=== PATIENT | female | born 1955 | race Caucasian/White ===

== ENCOUNTER → 2016-04-17 | Outpatient (CLI) | payer OTHER ==
[~2016-04-17] MED LIST: AMBIEN5 MG PO; ASPIR 8181 MG PO; ASPIR-LOX325 MG PO; ASPIRIN325 M2 PO; ASPIRIN81 M1 PO; ATIVAN0.5 MG PO; BIAXIN500 MG PO; CELEXA10 MG PO; CELEXA20 MG PO; CELEXA40 MG PO; CIPRO250 MG PO; CLARITIN10 MG PO; COMBIVENT1 ARO IH; COREG3.125 MG PO; FENOFIBRATE54 MG PO; HYDROCODONE BIT1 T11 PO; JANUVIA50 MG PO; KEFLEX500 MG PO; LIPITOR40 MG PO; LIPITOR80 MG PO; LISINOPRIL HCTZ1 TAB PO; LISINOPRIL10 MG PO; MEDROL DOSEPAK4 MG PO; MIRAPEX0.125 M1 PO; MOTRIN800 MG PO; Mysoline50 MG PO; NEURONTIN300 MG PO; NICOTINE T21 MG/24 H T; NORCO 5-325 TA1 EACH PO; NORVASC5 MG PO; OXYCODONE HCL15 MG PO; OXYCODONE15 MG PO; PERCOCET 325 MG1 TA7 PO; PLAVIX75 M1 PO; PRENATAL DHA+C1 EACH PO; PROTONIX40 MG PO; RESTORIL15 MG PO; RESTORIL30 MG PO; SIMVASTATIN10 MG PO; SYNTHROID0.05 MG PO; Synthroid,Lev100 MCG PO; TIZANIDINE HCL4 MG PO; TRICOR48 MG PO; VICO10300 PO; ZANAFLEX4 M1 PO; ZOLPIDEM TART5 MG PO
[2016-04-17 13:03] LABS: BILIRUBIN NEGATIVE (NEGATIVE); BLOOD NEGATIVE (NEGATIVE); CLARITY SL CLOUDY (CLEAR); COLOR YELLOW (YELLOW); GLUCOSE NEGATIVE (NEGATIVE); KETONE NEGATIVE (NEGATIVE); LEUKO ESTERASE NEGATIVE (NEGATIVE); NITRITE NEGATIVE (NEGATIVE); PH 5.5 (5.0-9.0); PROTEIN NEGATIVE (NEGATIVE); SPECIFIC GRAVITY 1.025 (1.005-1.030); UROBILINOGEN 0.2 E.U./dl (0.2-1.0)
[2016-04-17 13:06] LABS: BASO # 0.1 10*3/uL (0.0-0.1); BASO % 1.1 % (0.0-1.0); EOS # 0.1 10*3/uL (0.0-0.4); HEMATOCRIT 31.5 % (37.0-47.0); LYMPH % 15.7 % (27.0-41.0); MEAN CELL VOLUME 91.3 fl (81.0-99.0); MEAN CORPUSCULAR HGB CONC 31.7 g/dl (33.0-37.0); MEAN PLATELET VOLUME 9.8 fl (9.6-12.3); MONO # 0.5 10*3/uL (0.1-1.0); MONO % 7.9 % (3.0-9.0); NEUT # 4.7 10*3/uL (2.3-7.9); NEUT % 72.8 % (47.0-73.0); PLATELET COUNT AUTOMATED 370 10*3/uL (130-400); RED BLOOD COUNT 3.45 10*6/uL (4.10-5.10); RED CELL DISTRI WIDTH 15.7 % (0-14.5); WHITE BLOOD COUNT 6.4 10*3/uL (4.8-10.8)
[2016-04-17 13:21] LABS: URINE TP/CRE RATIO 0.2 (<0.21)
[2016-04-17 13:33] LABS: MAGNESIUM 2.1 mg/dL (1.5-2.1); PHOSPHOROUS 3.2 mg/dL (2.5-4.9); POTASSIUM 4.6 mmol/L (3.5-5.1)
[2016-04-17 13:42] LABS: BACTERIA 1+; RBC 0-2 rbc/hpf (0-2)
[2016-04-17 13:47] LABS: HEMOGLOBIN A1c 5.3 % (4.8-5.6)
[2016-04-17 14:30] LABS: FERRITIN 78.3 ng/mL (10.0-291.0); VITAMIN D, 25-HYDROXY 26.5 ng/mL (30-100)
== END | disposition home or self-care (01) ==
LOC: LAB 12:36 → US 13:00
PROVIDERS: Internal Medicine Nephrology
DX: N18.4 Chronic kidney disease, stage 4 (severe) (principal); N17.9 Acute kidney failure, unspecified

== ENCOUNTER 2018-04-22 11:21 | Emergency (ER) | payer OTHER ==
[~2018-04-22] VITALS: Ht 165.1 cm; Wt 107.5 kg
--- NOTE | ~2018-04-22 | EKG ---
[place], [place] ELECTROCARDIOGRAM REPORT NAME: PERLA BETANCOURT UNIT #: [id number] ROOM: DOCTOR: EPIPHANY DRAFT REPORT BIRTHDATE: [birth year] [facility] Test Date: 2018-04-22 Test Time: 11:18:45 Pat Name: PERLA BETANCOURT Department: Room: Gender: F Pharmacometrician: Perla Sellers : 1955 Requested By: GABY LEVY Order Number: [id number] Reading MD: Reno Jacobo MD Measurements Intervals [place] Rate: 90 P: 99 GA: 153 QRS: 75 QRSD: 85 T: 83 QT: 353 QTc: 432 Interpretive Statements Sinus rhythm Atrial premature complex Nonspecific T abnormalities, lateral leads No previous ECG available for comparison Electronically Signed On 04-22-2018 19:37:01 PST by Reno Jacobo MD CM:EKGRPT:ELECTROCARDIOGRAM REPORT [id number] GABY BURGOS DRAFT REPORT GABY LEVY M.D.
[2018-04-22 12:19] LABS: BASO # 0.1 10*3/uL (0.0-0.1); BASO % 0.7 % (0.0-1.0); EOS # 0.1 10*3/uL (0.0-0.4); EOS % 1.7 % (1.0-4.0); HEMATOCRIT 38.4 % (37.0-47.0); LYMPH # 1.1 10*3/uL (1.3-4.4); LYMPH % 14.5 % (27.0-41.0); MEAN CELL VOLUME 86.1 fl (81.0-99.0); MEAN CORPUSCULAR HGB 29.1 pg (27.0-31.0); MEAN CORPUSCULAR HGB CONC 33.9 g/dl (33.0-37.0); MEAN PLATELET VOLUME 9.4 fl (9.6-12.3); MONO # 0.5 10*3/uL (0.1-1.0); MONO % 6.6 % (3.0-9.0); NEUT # 5.7 10*3/uL (2.3-7.9); NEUT % 75.8 % (47.0-73.0); PLATELET COUNT AUTOMATED 249 10*3/uL (130-400); RED BLOOD COUNT 4.46 10*6/uL (4.10-5.10); RED CELL DISTRI WIDTH 13.3 % (0-14.5); WHITE BLOOD COUNT 7.5 10*3/uL (4.8-10.8)
[2018-04-22 12:30] LABS: ACT PARTIAL THROMBO TIME 24.1 SECONDS (20.8-31.5); INTERNATIONAL NORM RATIO 1.1 (2.0-3.5)
[2018-04-22 12:38] LABS: ALBUMIN 3.6 gm/dl (3.1-4.5); CREATININE 1.51 mg/dL (0.55-1.02); POTASSIUM 3.8 mmol/L (3.5-5.1); TOTAL PROTEIN 8.1 gm/dL (6.4-8.2)
== END 2018-04-22 13:13 | disposition short-term general hospital (02) ==
LOC: ED 11:21
PROVIDERS: Emergency Medicine
DX: G45.9 Transient cerebral ischemic attack, unspecified (principal); E11.9 Type 2 diabetes mellitus without complications; I10 Essential (primary) hypertension; E78.5 Hyperlipidemia, unspecified; K21.9 Gastro-esophageal reflux disease without esophagitis; E03.9 Hypothyroidism, unspecified; Z86.73 Personal history of transient ischemic attack (TIA), and cerebral infarction without residual deficits; Z79.899 Other long term (current) drug therapy; Z79.82 Long term (current) use of aspirin; Z79.84 Long term (current) use of oral hypoglycemic drugs; Z90.710 Acquired absence of both cervix and uterus; Z90.49 Acquired absence of other specified parts of digestive tract

== ENCOUNTER 2018-05-04 16:19 | Emergency (ER) | payer OTHER ==
--- NOTE | ~2018-05-04 | EKG ---
[place], [place] ELECTROCARDIOGRAM REPORT NAME: CECILIA BETANCOURT UNIT #: [id number] ROOM: DOCTOR: EPIPHANY DRAFT REPORT BIRTHDATE: [address] [facility] Test Date: 2018-05-04 Test Time: 22:55:42 Pat Name: CECILIA BETANCOURT Department: Room: Gender: F Business System Manager: Tre Sheehan : 1955 Requested By: AYO SUERO Order Number: [id number] Reading MD: Real Silva Measurements Intervals [place] Rate: 90 P: NE: QRS: 13 QRSD: 86 T: 70 QT: 355 QTc: 435 Interpretive Statements Sinus rhythm Borderline repolarization abnormality Compared to ECG 04/22/2018 11:18:45 Sinus rhythm no longer present Atrial premature complex(es) no longer present T-wave abnormality no longer present Electronically Signed On 05-06-2018 12:45:49 PST by Real Silva CM:EKGRPT:ELECTROCARDIOGRAM REPORT [id number] AYO TORREZ DRAFT REPORT AYO SUERO DO
--- NOTE | ~2018-05-04 | EKG ---
[place], [place] ELECTROCARDIOGRAM REPORT NAME: CECILIA BETANCOURT UNIT #: [id number] ROOM: DOCTOR: EPIPHANY DRAFT REPORT BIRTHDATE: [birth year] [facility] Test Date: 2018-05-05 Test Time: 01:14:58 Pat Name: CECILIA BETANCOURT Department: Room: Gender: F Medical Laboratory Scientist: Tre Sheehan : 1955 Requested By: AYO SUERO Order Number: [id number] Reading MD: Real Silva Measurements Intervals [place] Rate: 74 P: 99 CA: 149 QRS: 3 QRSD: 86 T: 149 QT: 367 QTc: 408 Interpretive Statements Sinus rhythm Atrial premature complexes in couplets Abnormal R-wave progression, late transition Nonspecific T abnormalities, lateral leads Compared to ECG 04/22/2018 11:18:45 No significant changes Electronically Signed On 05-06-2018 12:46:46 PST by Real Silva CM:EKGRPT:ELECTROCARDIOGRAM REPORT [id number] AYO TORREZ DRAFT REPORT AYO SUERO DO
[2018-05-04 23:11] LABS: BASO # 0.1 10*3/uL (0.0-0.1); BASO % 0.9 % (0.0-1.0); EOS # 0.1 10*3/uL (0.0-0.4); EOS % 1.3 % (1.0-4.0); HEMOGLOBIN 12.5 g/dl (12.0-16.0); LYMPH # 1.8 10*3/uL (1.3-4.4); MEAN CELL VOLUME 88.4 fl (81.0-99.0); MEAN CORPUSCULAR HGB 29.1 pg (27.0-31.0); MEAN CORPUSCULAR HGB CONC 32.9 g/dl (33.0-37.0); MEAN PLATELET VOLUME 9.9 fl (9.6-12.3); MONO # 0.8 10*3/uL (0.1-1.0); MONO % 8.6 % (3.0-9.0); NEUT # 6.3 10*3/uL (2.3-7.9); NEUT % 68.9 % (47.0-73.0); PLATELET COUNT AUTOMATED 300 10*3/uL (130-400); RED CELL DISTRI WIDTH 13.7 % (0-14.5); WHITE BLOOD COUNT 9.2 10*3/uL (4.8-10.8)
[2018-05-04 23:30] LABS: CREATININE 2.38 mg/dL (0.55-1.02); POTASSIUM 3.9 mmol/L (3.5-5.1); TOTAL PROTEIN 8.6 gm/dL (6.4-8.2)
[2018-05-04 23:37] LABS: ACT PARTIAL THROMBO TIME 24.1 SECONDS (20.8-31.5); INTERNATIONAL NORM RATIO 1.1 (2.0-3.5)
[2018-05-04 23:41] LABS: TROPONIN I 0.166 ng/ml (<0.045)
[2018-05-06 10:05] LABS: HEPATITIS B SURFACE AG Negative (Negative); HEPATITIS C AB <0.1 (0.0-0.9)
== END 2018-05-05 06:26 | disposition short-term general hospital (02) ==
LOC: ED 16:19
PROVIDERS: Student in an Organized Health Care Education/Training Program
DX: I63.9 Cerebral infarction, unspecified (principal); I95.9 Hypotension, unspecified; E11.9 Type 2 diabetes mellitus without complications; E78.5 Hyperlipidemia, unspecified; I10 Essential (primary) hypertension; K21.9 Gastro-esophageal reflux disease without esophagitis; E03.9 Hypothyroidism, unspecified; Z86.73 Personal history of transient ischemic attack (TIA), and cerebral infarction without residual deficits; Z79.899 Other long term (current) drug therapy; Z79.82 Long term (current) use of aspirin; Z79.84 Long term (current) use of oral hypoglycemic drugs

== ENCOUNTER → 2019-02-13 | Outpatient (CLI) | payer OTHER ==
[2019-02-13 11:36] LABS: BILIRUBIN NEGATIVE (NEGATIVE); BLOOD NEGATIVE (NEGATIVE); CLARITY SL CLOUDY (CLEAR); COLOR YELLOW (YELLOW); GLUCOSE NEGATIVE (NEGATIVE); KETONE NEGATIVE (NEGATIVE); LEUKO ESTERASE NEGATIVE (NEGATIVE); NITRITE NEGATIVE (NEGATIVE); UROBILINOGEN 0.2 E.U./dl (0.2-1.0)
[2019-02-13 11:40] LABS: BASO # 0.1 10*3/uL (0.0-0.1); BASO % 0.7 % (0.0-1.0); EOS # 0.1 10*3/uL (0.0-0.4); EOS % 1.8 % (1.0-4.0); HEMATOCRIT 35.9 % (37.0-47.0); HEMOGLOBIN 11.5 g/dl (12.0-16.0); LYMPH % 12.9 % (27.0-41.0); MEAN CELL VOLUME 89.8 fl (81.0-99.0); MEAN CORPUSCULAR HGB 28.8 pg (27.0-31.0); MEAN PLATELET VOLUME 9.8 fl (9.6-12.3); MONO # 0.6 10*3/uL (0.1-1.0); MONO % 8.4 % (3.0-9.0); NEUT # 5.6 10*3/uL (2.3-7.9); NEUT % 75.5 % (47.0-73.0); PLATELET COUNT AUTOMATED 291 10*3/uL (130-400); RED CELL DISTRI WIDTH 13.4 % (0-14.5); RETICULOCYTE % 2.02 % (0.50-2.50); WHITE BLOOD COUNT 7.4 10*3/uL (4.8-10.8)
[2019-02-13 12:05] LABS: BACTERIA TRACE; RBC 0-2 rbc/hpf (0-2); WBC 0-2 wbc/hpf (0-5)
[2019-02-13 12:13] LABS: ALBUMIN 3.9 gm/dl (3.1-4.5); CREATININE 1.51 mg/dL (0.55-1.02); POTASSIUM 4.2 mmol/L (3.5-5.1); THYROXINE (T4) TOTAL 7.9 ug/dl (4.8-13.9)
[2019-02-13 12:19] LABS: THYROID STIM HORMONE (HS) 1.53 uIU/ml (0.358-4.75)
[2019-02-13 12:38] LABS: FERRITIN 318.8 ng/mL (10.0-291.0); VITAMIN D, 25-HYDROXY 31.8 ng/mL (30-100)
== END | disposition home or self-care (01) ==
LOC: LAB 11:06
PROVIDERS: Family Medicine
DX: E55.9 Vitamin D deficiency, unspecified (principal); R53.83 Other fatigue; R79.89 Other specified abnormal findings of blood chemistry; Z79.899 Other long term (current) drug therapy

== ENCOUNTER 2019-04-15 13:06 | Emergency (ER) | payer OTHER ==
[~2019-04-15] VITALS: Wt 112.0 kg
[2019-04-15 13:45] LABS: BASO % 0.7 % (0.0-1.0); EOS # 0.1 10*3/uL (0.0-0.4); EOS % 1.8 % (1.0-4.0); HEMATOCRIT 33.3 % (37.0-47.0); HEMOGLOBIN 10.8 g/dl (12.0-16.0); LYMPH # 0.9 10*3/uL (1.3-4.4); MEAN CELL VOLUME 92.8 fl (81.0-99.0); MEAN CORPUSCULAR HGB 30.1 pg (27.0-31.0); MEAN CORPUSCULAR HGB CONC 32.4 g/dl (33.0-37.0); MEAN PLATELET VOLUME 9.7 fl (9.6-12.3); MONO # 0.4 10*3/uL (0.1-1.0); NEUT # 3.9 10*3/uL (2.3-7.9); NEUT % 71.4 % (47.0-73.0); PLATELET COUNT AUTOMATED 280 10*3/uL (130-400); RED BLOOD COUNT 3.59 10*6/uL (4.10-5.10); RED CELL DISTRI WIDTH 13.7 % (0-14.5); WHITE BLOOD COUNT 5.5 10*3/uL (4.8-10.8)
[2019-04-15 14:00] LABS: ACT PARTIAL THROMBO TIME 45.1 SECONDS (20.0-32.1); ALBUMIN 3.7 gm/dl (3.1-4.5); CREATININE 1.55 mg/dL (0.55-1.02); INTERNATIONAL NORM RATIO 1.1 (2.0-3.5); TOTAL PROTEIN 7.8 gm/dL (6.4-8.2); TROPONIN I 0.028 ng/ml (<0.045)
== END 2019-04-15 14:40 | disposition short-term general hospital (02) ==
LOC: ED 13:06
PROVIDERS: Emergency Medicine
DX: R47.81 Slurred speech (principal); R29.810 Facial weakness; R06.02 Shortness of breath; R68.2 Dry mouth, unspecified; E11.9 Type 2 diabetes mellitus without complications; I10 Essential (primary) hypertension; K21.9 Gastro-esophageal reflux disease without esophagitis; E03.9 Hypothyroidism, unspecified; E78.00 Pure hypercholesterolemia, unspecified; M79.7 Fibromyalgia; Z90.710 Acquired absence of both cervix and uterus; Z90.49 Acquired absence of other specified parts of digestive tract; Z86.73 Personal history of transient ischemic attack (TIA), and cerebral infarction without residual deficits; Z79.899 Other long term (current) drug therapy; Z79.82 Long term (current) use of aspirin; Z87.891 Personal history of nicotine dependence

== ENCOUNTER 2019-07-07 13:27 | Inpatient (IN) | payer OTHER ==
[2019-07-07] VITALS (19 sets, daily range): BP systolic 93–144; BP diastolic 53–97
[~2019-07-07] VITALS: Ht 165.1 cm; Wt 89.6 kg
--- NOTE | 2019-07-07 13:35 | NUR ---
aware of ekg at this time.
[2019-07-07 13:52] LABS: BASO # 0.1 10*3/uL (0.0-0.1); BASO % 0.8 % (0.0-1.0); EOS # 0.1 10*3/uL (0.0-0.4); EOS % 0.9 % (1.0-4.0); HEMATOCRIT 37.6 % (37.0-47.0); LYMPH # 0.9 10*3/uL (1.3-4.4); LYMPH % 11.4 % (27.0-41.0); MEAN CELL VOLUME 87.2 fl (81.0-99.0); MEAN CORPUSCULAR HGB 28.3 pg (27.0-31.0); MEAN CORPUSCULAR HGB CONC 32.4 g/dl (33.0-37.0); MONO # 0.5 10*3/uL (0.1-1.0); MONO % 6.8 % (3.0-9.0); NEUT % 79.3 % (47.0-73.0); PLATELET COUNT AUTOMATED 182 10*3/uL (130-400); RED BLOOD COUNT 4.31 10*6/uL (4.10-5.10); RED CELL DISTRI WIDTH 14.5 % (0-14.5); WHITE BLOOD COUNT 7.6 10*3/uL (4.8-10.8)
[2019-07-07 14:02] LABS: ACT PARTIAL THROMBO TIME 49.9 SECONDS (20.0-32.1); INTERNATIONAL NORM RATIO 1.2 (2.0-3.5)
--- NOTE | 2019-07-07 14:10 | NUR ---
Pt turned and voided yellow urine.No wounds noted.
[2019-07-07 14:11] LABS: ALBUMIN 3.8 gm/dl (3.1-4.5); CREATININE 1.57 mg/dL (0.55-1.02); POTASSIUM 3.9 mmol/L (3.5-5.1); TOTAL PROTEIN 7.6 gm/dL (6.4-8.2)
[2019-07-07 14:14] LABS: TROPONIN I 0.186 ng/ml (<0.045)
--- NOTE | 2019-07-07 14:29 | NUR ---
and in to see pt at this time.
--- NOTE | 2019-07-07 14:40 | NUR ---
Nitro paste applied to left upper chest with notecard.
--- NOTE | 2019-07-07 14:48 | NUR ---
Pt states her chest pain is feeling better after nitro.
--- NOTE | 2019-07-07 15:01 | NUR ---
Conchis liu updated on pt status per pt request.
[2019-07-07] MEDS ORDERED: AMIODARONE HYD200 MG PO (15:37)
[2019-07-07] MEDS ORDERED: AMLODIPINE BESYL5 MG PO (15:37)
[2019-07-07] MEDS ORDERED: ELIQUIS5 M1 PO (15:38)
[2019-07-07] MEDS ORDERED: LEVOTHYROXINE125 MCG PO (15:39)
--- NOTE | 2019-07-07 15:40 | NUR ---
Pt voided large amount of urine at this time.
[2019-07-07] MEDS ORDERED: PRAMIPEXOLE DI0.5 MG PO (15:41)
[2019-07-07] MEDS ORDERED: OMEPRAZOLE MAGN20 MG PO (15:44)
--- NOTE | 2019-07-07 15:50 | NUR ---
A 63, admitted to , under the services of CHUY Wellington DO with a diagnosis of NSTEMI. Chief complaint is CHEST PAIN AND LOWER LEFT JAWA PAIN x2 HOURS. Patient arrived via ambulance from ER. Monitor applied. Initial assessment completed. Vital signs taken and recorded. CHUY WELLINGTON DO notified of admission to the unit. Orders received. See assessment for past medical history, medications and allergies. Patient and/or family oriented to unit. [facility] visitation policy reviewed. Clothing/patient valuable form completed. HEYDI LAYNE
--- NOTE | 2019-07-07 16:01 | NUR ---
ATTEMPTED TO CALL CONSULT TO CARDIO. ANSWERING SERVICE STATED NO ONE WAS PER DIEM NURSE. WILL ATTEMPT TO CALL CONSULT AGAIN.
--- NOTE | 2019-07-07 16:24 | NUR ---
HEPARIN DRIP STARTED. WILL MONITOR.
--- NOTE | 2019-07-07 16:43 | NUR ---
CONSULT CALLED TO ANSWERING SERVICE.
[2019-07-07] MEDS ORDERED: ZOFRAN4 MG PO (17:12)
[2019-07-07] MEDS ORDERED: TYLENOL WITH C1 EACH PO (17:13)
[2019-07-07] MEDS ORDERED: ZANAFLEX4 MG PO (17:14)
[2019-07-07] MEDS ORDERED: ATIVAN0.5 MG PO (17:15)
[2019-07-07] MEDS ORDERED: MIRALAX17 GM PO (17:16)
[2019-07-07] MEDS ORDERED: LOPID600 M1 PO (17:33)
[2019-07-07] MEDS ORDERED: SENNA LAX8.6 M1 PO (17:33)
[2019-07-07] MEDS ORDERED: IRON325 M1 PO (17:34)
[2019-07-07] MEDS ORDERED: TOPAMAX25 M3 PO (17:37)
--- NOTE | 2019-07-07 18:44 | NUR ---
CALLED TO ROOM FOR C/O INCREASED SOB AND CHEST PAIN. MORPHINE GIVEN PER ORDERS. PT SEEMED VERY ANXIOUS AT THIS TIME, RESTLESS, AND C/O CUMMINGS. ATIVAN AND TOPAMAX GIVEN FOR COMPLAINTS. ASSISTED PT TO REPOSTION FOR COMFORT. WILL MONITOR.
--- NOTE | 2019-07-07 20:02 | NUR ---
NOTIFIED DR. FELDER OF CRITICAL TROPONIN, 4.940.
--- NOTE | 2019-07-07 20:16 | NUR ---
NOTIFIED DR. LIM OF NEW CRITICAL TROPONIN. STATES TO START NITRO DRIP AND TRANSFER PATIENT TO ICU. DR. FELDER MADE AWARE.
--- NOTE | 2019-07-07 20:30 | NUR ---
NOTIFIED FAMILY OF TRANSFER
--- NOTE | 2019-07-07 21:15 | NUR ---
PATIENT MOVED TO [facility]. REPORT GIVEN TO ADALBERTO HENNESSY.
--- NOTE | 2019-07-07 21:30 | NUR ---
NITRO DRIP STARTED ON PATIENT. PT BP 123/79 AND HR 88 AT THIS TIME. WILL CONTINUE TO MONITOR AND REASSESS.
--- NOTE | 2019-07-07 21:50 | NUR ---
NITRO DRIP INCREASED TO 10 MCG.
--- NOTE | 2019-07-07 21:50 | NUR ---
SPOKE WITH KINNEAR REGARDING CARE. PATIENT WILL RECEIVE 12.5 OF METOPROLOL AT THIS TIME TO ENSURE ADEQUATE PRESSURES WHILE ON NITRO DRIP.
--- NOTE | 2019-07-07 23:10 | NUR ---
DR. UMAÑA AND DR. BORDEN NOTIFIED OF CRITICAL TROPONIN RESULT. NO NEW ORDERS AT THIS TIME.
--- NOTE | 2019-07-07 23:16 | NUR ---
MOPHINE AND ZODFRAN GIVEN AT THIS TIME. PATIENT STILL HAVING A SMALL AMOUNT OF CHEST PAIN AT THIS TIME AND IS REQUESTING MEDICATION. WILL CONTINUE TO MONITOR AND REASSESS.
--- NOTE | 2019-07-07 23:35 | NUR ---
BP DROPPED TO 90'S/50'S. NITRO DRIP DECREASED TO 5MCG.
[2019-07-08] VITALS (45 sets, daily range): BP systolic 88–131; BP diastolic 54–82
--- NOTE | 2019-07-08 00:35 | NUR ---
HEPARIN DRIP STOPPED AT THIS TIME PER POLICY DUE TO LAB RESULT OF NO CLOT DETECTED. LAB TEST WAS DONE TWICE AND SPOKE DANYEL LANE FROM THE LAB.
--- NOTE | 2019-07-08 02:00 | NUR ---
DR. UMAÑA NOTIFIED OF CRITICAL TROPONIN AND CRITICALL PTT RESULT. PATIENT CONDITION REVIEWED. ORDERS RECEIVED TO HOLD HEPARIN DRIP FOR ANOTHER HOUR AND RESTARTED IT AT DECREASED RATE PER POLICY. PTT WILL BE REDRAWN AT 0900.
[2019-07-08 05:51] LABS: ALBUMIN 3.3 gm/dl (3.1-4.5); CREATININE 1.53 mg/dL (0.55-1.02); FREE T4 1.41 ng/dl (0.76-1.46); PHOSPHOROUS 4.4 mg/dL (2.5-4.9); TOTAL PROTEIN 6.8 gm/dL (6.4-8.2)
[2019-07-08 05:55] LABS: THYROID STIM HORMONE (HS) 0.743 uIU/ml (0.358-4.75)
[2019-07-08 06:16] LABS: INTERNATIONAL NORM RATIO 1.1 (2.0-3.5)
[2019-07-08 06:24] LABS: BASO # 0.1 10*3/uL (0.0-0.1); BASO % 1.2 % (0.0-1.0); EOS # 0.1 10*3/uL (0.0-0.4); EOS % 2.2 % (1.0-4.0); LYMPH # 1.7 10*3/uL (1.3-4.4); LYMPH % 29.2 % (27.0-41.0); MEAN CELL VOLUME 89.5 fl (81.0-99.0); MEAN CORPUSCULAR HGB 28.4 pg (27.0-31.0); MEAN CORPUSCULAR HGB CONC 31.7 g/dl (33.0-37.0); MEAN PLATELET VOLUME 10.8 fl (9.6-12.3); MONO # 0.5 10*3/uL (0.1-1.0); MONO % 8.2 % (3.0-9.0); NEUT # 3.4 10*3/uL (2.3-7.9); NEUT % 58.5 % (47.0-73.0); PLATELET COUNT AUTOMATED 171 10*3/uL (130-400); RED BLOOD COUNT 3.91 10*6/uL (4.10-5.10); RED CELL DISTRI WIDTH 14.7 % (0-14.5); WHITE BLOOD COUNT 5.8 10*3/uL (4.8-10.8)
--- NOTE | 2019-07-08 08:00 | NUR ---
PATIENT AO X 3. HEP AND NITRO DRIPS RUNNING WITHOUT DIFFICULTY.
[2019-07-08 08:11] LABS: VITAMIN D, 25-HYDROXY 31.9 ng/mL (30-100)
--- NOTE | 2019-07-08 08:50 | NUR ---
AGNES PATIENT BLOOD AND SENT TO LAB FOR PTT.
--- NOTE | 2019-07-08 09:35 | NUR ---
MEDICATED WITH TYLENOL AND CODIENE PER ORDER AND REQUEST FOR C/O HEADACHE.
--- NOTE | 2019-07-08 09:36 | NUR ---
LAB CALLED AND STATED TUBE NEEDS TO BE FILLED NOT HALF. SOMEONE FROM LAB IS COMING TO DRAW.
--- NOTE | 2019-07-08 10:30 | NUR ---
PATIENT SLEEPING TYLENOL/CODEINE HELPED.
--- NOTE | 2019-07-08 10:54 | NUR ---
DR. MONTES HAS ROUNDED. NITRO GTT OFF PASTE TO TAKE ITS PLACE. PATIENT IS TO GO TO [facility]' WEDNESDAY FOR HEART CATH WILL NOTIFY FAMILY.
--- NOTE | 2019-07-08 11:30 | NUR ---
DAUGHTER CALLED IN AND UPDATED ON PATIENT CONDITION AND TRANSFER ON WEDNESDAY.
--- NOTE | 2019-07-08 16:02 | NUR ---
MEDICATED WITH PRN ATIVAN PER ORDER AND REQUEST.
--- NOTE | 2019-07-08 18:10 | NUR ---
DARON EARLIER HELPED.
--- NOTE | 2019-07-08 20:00 | NUR ---
RN IN TO SEE PATIENT, PATIENT C/O NOSE BLEED. UPON INSPECTION PATIENT'S NOSTRILS APPEAR DRY AND PATIENT ADMITS TO SCRATCHING INSIDE OF NOSE. RN EXPLAINED TO PATIENT THAT INSIDE OF NOSE MAY BE DRY FOR OXYGEN USE AND WILL EASILY BLEED DUE TO HEPARIN DRIP. RN INSTRUCTED PATIENT TO USE WET WIPE TO WIPE NOSE INSTEAD OF DRY TISSUE. PATIENT VERBALIZES UNDERSTANDING. PATIENT ALSO C/O HEADCHE, IS REQUESTING TYLENOL WITH MANDEEPE. STATES THAT IT WORKED EARLIER AND WOULD LIKE AGAIN.
--- NOTE | 2019-07-08 20:15 | NUR ---
PATIENT MEDICATED WITH TYLENOL AND CODIENE FOR COMPLAINTS OF HEADACHE. RN WILL MONITOR FOR RELIEF
--- NOTE | 2019-07-08 20:46 | NUR ---
PATIENT MEDICATED WITH RESTORIL PER REQUEST. SILVIA STATES SHE HAS DIFFICULTY SLEEPING WITHOUT MEDICATION. RN WILL MONITOR FOR EFFECTIVENESS
--- NOTE | 2019-07-08 22:52 | NUR ---
PATIENT RESTING QUIETLY WITH EYES CLOSED, APPEARS TO BE SLEEPING. EARLIER PRN MEDICATIONS SEEM TO HAVE BEEN EFFECTIVE
[2019-07-09] VITALS: BP 110/62; BP 99/62
--- NOTE | 2019-07-09 03:44 | NUR ---
Patient resting quietly with no c/o discomfort. Respirations easy and regular. Vital signs stable. No overt distress. HEPARIN CONTINUES TO INFUSE PER PROTOCOL. ABY CASTELLON
[2019-07-09 04:00] VITALS: BP 98/60
[2019-07-09 05:56] LABS: BUN 26 mg/dl (7-24); CHLORIDE 106 mmol/L (98-107); CREATININE 1.55 mg/dL (0.55-1.02); POTASSIUM 3.9 mmol/L (3.5-5.1); SODIUM 139 mmol/L (136-145)
[2019-07-09 06:01] LABS: PHOSPHOROUS 3.7 mg/dL (2.5-4.9)
[2019-07-09 06:15] LABS: BASO # 0.1 10*3/uL (0.0-0.1); BASO % 0.9 % (0.0-1.0); EOS # 0.1 10*3/uL (0.0-0.4); EOS % 1.9 % (1.0-4.0); HEMATOCRIT 33.7 % (37.0-47.0); LYMPH # 1.6 10*3/uL (1.3-4.4); LYMPH % 28.1 % (27.0-41.0); MEAN CELL VOLUME 88.9 fl (81.0-99.0); MEAN CORPUSCULAR HGB 28.2 pg (27.0-31.0); MEAN CORPUSCULAR HGB CONC 31.8 g/dl (33.0-37.0); MEAN PLATELET VOLUME 10.5 fl (9.6-12.3); MONO # 0.4 10*3/uL (0.1-1.0); MONO % 7.2 % (3.0-9.0); NEUT # 3.6 10*3/uL (2.3-7.9); NEUT % 61.2 % (47.0-73.0); PLATELET COUNT AUTOMATED 190 10*3/uL (130-400); RED BLOOD COUNT 3.79 10*6/uL (4.10-5.10); RED CELL DISTRI WIDTH 14.6 % (0-14.5); WHITE BLOOD COUNT 5.8 10*3/uL (4.8-10.8)
[2019-07-09 06:17] LABS: PHENOBARBITAL (LUMINAL) < 2.1 ug/ml (15-40)
[2019-07-09 08:00] VITALS: BP 102/60
--- NOTE | 2019-07-09 09:00 | NUR ---
DR MONTES ROUNDED
--- NOTE | 2019-07-09 10:20 | NUR ---
DR NIKI WISE
[2019-07-09 12:00] VITALS: BP 88/53
[2019-07-09 16:00] VITALS: BP 94/69
--- NOTE | 2019-07-09 16:27 | NUR ---
PATIENT REMAINS UP IN THE RECLINER...PT WANTS TO STAY UP.. SHE IS WORKING HER LEGS, MOVING HER ARMS..
[2019-07-09] MEDS ORDERED: NEURONTIN300 MG PO (16:46)
[2019-07-09] MEDS ORDERED: LOPRESSOR25 MG PO (16:46)
[2019-07-09 20:00] VITALS: BP 113/46
--- NOTE | 2019-07-09 21:10 | NUR ---
codeine and tylenol given for pt c/o headache. will continue to monitor, call light within reach.
[2019-07-10] VITALS: BP 110/62
--- NOTE | 2019-07-10 03:24 | NUR ---
PATIENT BATHED WITH HIBICLENS AND BED LINENS CHANGED AT THIS TIME.
[2019-07-10 04:00] VITALS: BP 114/58
[2019-07-10 06:05] LABS: BASO % 0.6 % (0.0-1.0); EOS # 0.1 10*3/uL (0.0-0.4); EOS % 1.5 % (1.0-4.0); HEMATOCRIT 34.7 % (37.0-47.0); LYMPH # 1.4 10*3/uL (1.3-4.4); LYMPH % 22.3 % (27.0-41.0); MEAN CELL VOLUME 87.8 fl (81.0-99.0); MEAN CORPUSCULAR HGB 28.4 pg (27.0-31.0); MEAN CORPUSCULAR HGB CONC 32.3 g/dl (33.0-37.0); MEAN PLATELET VOLUME 10.4 fl (9.6-12.3); MONO # 0.4 10*3/uL (0.1-1.0); MONO % 5.6 % (3.0-9.0); NEUT # 4.5 10*3/uL (2.3-7.9); NEUT % 69.1 % (47.0-73.0); PLATELET COUNT AUTOMATED 196 10*3/uL (130-400); RED BLOOD COUNT 3.95 10*6/uL (4.10-5.10); RED CELL DISTRI WIDTH 14.4 % (0-14.5); WHITE BLOOD COUNT 6.5 10*3/uL (4.8-10.8)
[2019-07-10 06:17] LABS: CREATININE 1.47 mg/dL (0.55-1.02); POTASSIUM 4.1 mmol/L (3.5-5.1)
--- NOTE | 2019-07-10 07:32 | NUR ---
Patient being transferred for heart cath. No answer physician phone. Unknown if to perform echo or cancel. ECHO on hold.
--- NOTE | 2019-07-10 07:59 | NUR ---
I SPOKE WITH NURSE DANICA IN [facility]LL [facility] OPERATOR AT [facility]. REPORT GIVEN AND HE STATED TO MAKE SURE PT HAS TAKEN HER BP AND CARDIAC MEDS AND ASA THIS AM. OK TO LEAVE HEPARIN GTT RUNNING EN ROUTE TO THEM. [facility] NOTIFIED OF NEED FOR TRANSPORT TO [facility] TOLL BRIDGE OPERATOR KRISTEN.
[2019-07-10 08:00] VITALS: BP 113/61
--- NOTE | 2019-07-10 08:18 | NUR ---
[facility] HERE TO TRANSPORT PT TO [facility] [employer].
--- NOTE | 2019-07-10 08:50 | NUR ---
PHYSICAL THERAPY PT order received when patient was on 4E. Patient transferred to 5th floor for ICU care. Per nursing notes, patient is being transferred to [facility] this date. Please discharge PT orders at this time. Thank you. Kat Patel,PT,DPT
--- NOTE | 2019-07-10 08:51 | NUR ---
Occupational therapy orders received and chart reviewed. Per the nursing notes, patient is being transferred to [facility] lab this date. No further OT indicated at this time. Thank you. Connie Griffiths, OTR/L
== END 2019-07-10 08:18 | disposition short-term general hospital (02) | DRG 281 ==
LOC: ED 13:27 → 5E 14:54 → EDHOLD 14:54 → 4E 15:04 → 5E 20:37
PROVIDERS: Family Medicine; Internal Medicine; ADMIT Internal Medicine
DX: I21.4 Non-ST elevation (NSTEMI) myocardial infarction (principal); D68.9 Coagulation defect, unspecified; J90 Pleural effusion, not elsewhere classified; N18.3 Chronic kidney disease, stage 3 (moderate); I48.91 Unspecified atrial fibrillation; R74.0 Nonspecific elevation of levels of transaminase and lactic acid dehydrogenase [LDH]; R00.0 Tachycardia, unspecified; E03.9 Hypothyroidism, unspecified; E11.65 Type 2 diabetes mellitus with hyperglycemia; F41.9 Anxiety disorder, unspecified; G89.4 Chronic pain syndrome; F32.9 Major depressive disorder, single episode, unspecified; E78.5 Hyperlipidemia, unspecified; I12.9 Hypertensive chronic kidney disease with stage 1 through stage 4 chronic kidney disease, or unspecified chronic kidney disease; E11.22 Type 2 diabetes mellitus with diabetic chronic kidney disease; K21.9 Gastro-esophageal reflux disease without esophagitis; Z86.73 Personal history of transient ischemic attack (TIA), and cerebral infarction without residual deficits; Z90.49 Acquired absence of other specified parts of digestive tract; Z90.710 Acquired absence of both cervix and uterus; Z90.79 Acquired absence of other genital organ(s); Z90.722 Acquired absence of ovaries, bilateral; Z79.01 Long term (current) use of anticoagulants; I25.2 Old myocardial infarction; Z87.891 Personal history of nicotine dependence; Z82.49 Family history of ischemic heart disease and other diseases of the circulatory system; Z80.7 Family history of other malignant neoplasms of lymphoid, hematopoietic and related tissues; Z79.899 Other long term (current) drug therapy; Z79.82 Long term (current) use of aspirin; Z79.02 Long term (current) use of antithrombotics/antiplatelets

== ENCOUNTER → 2019-08-23 | Day surgery (SDC) | payer OTHER ==
[~2019-08-23] VITALS: Ht 165.1 cm; Wt 67.1 kg
[~2019-08-23] MED LIST changes: +AMIODARONE HYD200 MG PO; +AMLODIPINE BESYL5 MG PO; +BRILINTA90 M1 PO; +ELIQUIS5 M1 PO; +IRON325 M1 PO; +LEVOTHYROXINE125 MCG PO; +LOPID600 M1 PO; +LOPRESSOR25 MG PO; +METOPROLOL SUCC50 M2 PO; +MIRALAX17 GM PO; +OMEPRAZOLE MAGN20 MG PO; +PRAMIPEXOLE DI0.5 MG PO; +SENNA LAX8.6 M1 PO; +TOPAMAX25 M3 PO; +TRAZODONE50 MG PO; +TYLENOL WITH C1 EACH PO; +ZANAFLEX4 MG PO; +ZOFRAN4 MG PO
[2019-08-23 10:05] VITALS: BP 121/68
[2019-08-23 11:25] VITALS: BP 92/39
[2019-08-23 11:41] VITALS: BP 96/46
[2019-08-23 11:56] VITALS: BP 100/52
== END | disposition home or self-care (01) ==
LOC: SDC 08-22 13:15
DX: I48.20 Chronic atrial fibrillation, unspecified (principal); I25.10 Atherosclerotic heart disease of native coronary artery without angina pectoris; I12.9 Hypertensive chronic kidney disease with stage 1 through stage 4 chronic kidney disease, or unspecified chronic kidney disease; E11.22 Type 2 diabetes mellitus with diabetic chronic kidney disease; N18.4 Chronic kidney disease, stage 4 (severe); Z88.8 Allergy status to other drugs, medicaments and biological substances; Z79.899 Other long term (current) drug therapy; I25.2 Old myocardial infarction; Z98.890 Other specified postprocedural states

== ENCOUNTER 2019-09-04 09:51 | Inpatient (IN) | payer OTHER, MEDICAID ==
[~2019-09-04] VITALS: Ht 165.1 cm; Wt 60.4 kg
[2019-09-04] VITALS (7 sets, daily range): BP systolic 101–124; BP diastolic 40–65
[~2019-09-04 09:51] MED LIST changes: -METOPROLOL SUCC50 M2 PO
[2019-09-04 10:52] LABS: BASO % 0.4 % (0.0-1.0); EOS % 0.4 % (1.0-4.0); HEMATOCRIT 31.3 % (37.0-47.0); LYMPH # 0.5 10*3/uL (1.3-4.4); LYMPH % 6.8 % (27.0-41.0); MEAN CELL VOLUME 90.2 fl (81.0-99.0); MEAN CORPUSCULAR HGB 28.5 pg (27.0-31.0); MEAN CORPUSCULAR HGB CONC 31.6 g/dl (33.0-37.0); MEAN PLATELET VOLUME 10.4 fl (9.6-12.3); MONO # 0.7 10*3/uL (0.1-1.0); MONO % 8.6 % (3.0-9.0); NEUT # 6.3 10*3/uL (2.3-7.9); NEUT % 83.3 % (47.0-73.0); PLATELET COUNT AUTOMATED 182 10*3/uL (130-400); RED BLOOD COUNT 3.47 10*6/uL (4.10-5.10); RED CELL DISTRI WIDTH 15.1 % (0-14.5); WHITE BLOOD COUNT 7.5 10*3/uL (4.8-10.8)
[2019-09-04 11:03] LABS: ACT PARTIAL THROMBO TIME 52.4 SECONDS (20.0-32.1); INTERNATIONAL NORM RATIO 1.4 (2.0-3.5)
[2019-09-04 11:09] LABS: ALBUMIN 3.1 gm/dl (3.1-4.5); CREATININE 1.3 mg/dL (0.55-1.02); POTASSIUM 4.5 mmol/L (3.5-5.1); TOTAL PROTEIN 7.1 gm/dL (6.4-8.2)
[2019-09-04 11:10] LABS: TROPONIN I 0.085 ng/ml (<0.045)
--- NOTE | 2019-09-04 12:53 | NUR ---
SPOKE WITH KIN IN [facility] C[facility]. SAID SHE WOULD NOTIFY OF CONSULT.
--- NOTE | 2019-09-04 13:08 | NUR ---
PT UP[ AT BEDSIDE EATING LUNCH TRAY PT WILL BE TRANSPORTED UP STAIRS AFTER EATING.
--- NOTE | 2019-09-04 13:26 | NUR ---
AWARE OF TROP 0.087. NO NEW ORDERS AT THIS TIME.
--- NOTE | 2019-09-04 13:36 | NUR ---
A 63, admitted to 5E, under the services of ANYI Bonilla DO with a diagnosis of SYMPTOMATIC BRADYCARDIA. Chief complaint is SOB. Patient arrived via ambulance from ER. Monitor applied. Initial assessment completed. Vital signs taken and recorded. ANYI BONILLA DO notified of admission to the unit. Orders received. See assessment for past medical history, medications and allergies. Patient and/or family oriented to unit. [facility] visitation policy reviewed. Clothing/patient valuable form completed. HEYDI LAYNE
--- NOTE | 2019-09-04 13:39 | NUR ---
IN TO SEE PT.
--- NOTE | 2019-09-04 13:57 | NUR ---
ROGERSIEN GIVEN FOR COMPLAINTS OF BACK PAIN 12/29, CHRONIC. CALL LIGHT IN REACH. WILL MONITOR. NURSE AT BEDSIDE FOR ASSESSMENT.
[2019-09-04] MEDS ORDERED: METOPROLOL SUCC50 M2 PO (14:15)
--- NOTE | 2019-09-04 14:16 | NUR ---
PER PT, MORPHINE WAS EFFECTIVE.
[2019-09-04] MEDS ORDERED: MIRAPEX0.125 M1 PO (14:21)
--- NOTE | 2019-09-04 14:22 | NUR ---
MED REC UPDATED VIA HOME LIST. AWARE.
--- NOTE | 2019-09-04 16:30 | NUR ---
INFORMED OF CRITICAL TROPONIN OF 0.114. NO NEW ORDERS RECD.
--- NOTE | 2019-09-04 16:51 | NUR ---
ISHPEMING GIVEN FOR CHRONIC BACK PAIN COMPLAINTS. CALL LIGHT IN REACH. WILL MONITOR.
--- NOTE | 2019-09-04 20:40 | NUR ---
DR FRENCH NOTIFIED PT HR 38-39, PATIENT RESTING IN BED & NO DISTRESS. STATES TO CONT TO MONITOR FOR SYMPTOMS.
[2019-09-05] VITALS: BP 109/53
--- NOTE | 2019-09-05 02:44 | NUR ---
NORCO GIVEN FOR C/O HEADACHE PAIN. DENIES CP OR DIZZINESS.
--- NOTE | 2019-09-05 03:44 | NUR ---
PATIENT STATES NORCO IS EFFECTIVE FOR PAIN. PATIENT REPOSITIONED AND PULLED UP IN BED.
[2019-09-05 06:03] LABS: BASO % 0.6 % (0.0-1.0); EOS # 0.1 10*3/uL (0.0-0.4); EOS % 1.1 % (1.0-4.0); HEMATOCRIT 29.7 % (37.0-47.0); LYMPH # 0.9 10*3/uL (1.3-4.4); MEAN CELL VOLUME 89.2 fl (81.0-99.0); MEAN CORPUSCULAR HGB 28.2 pg (27.0-31.0); MEAN CORPUSCULAR HGB CONC 31.6 g/dl (33.0-37.0); MEAN PLATELET VOLUME 10.8 fl (9.6-12.3); MONO # 0.7 10*3/uL (0.1-1.0); MONO % 9.6 % (3.0-9.0); NEUT # 5.4 10*3/uL (2.3-7.9); NEUT % 75.9 % (47.0-73.0); PLATELET COUNT AUTOMATED 173 10*3/uL (130-400); RED BLOOD COUNT 3.33 10*6/uL (4.10-5.10); RED CELL DISTRI WIDTH 15.3 % (0-14.5); WHITE BLOOD COUNT 7.1 10*3/uL (4.8-10.8)
[2019-09-05 06:14] LABS: CREATININE 1.17 mg/dL (0.55-1.02); FREE T4 1.7 ng/dl (0.76-1.46); POTASSIUM 3.7 mmol/L (3.5-5.1)
[2019-09-05 06:20] LABS: THYROID STIM HORMONE (HS) 0.048 uIU/ml (0.358-4.75)
[2019-09-05 08:00] VITALS: BP 139/56
--- NOTE | 2019-09-05 09:00 | NUR ---
District Fire Chief in to talk to patient. Patient states lives at home with . There are 8 steps in the home. Physician: spencer [facility]acy: [facility] health services: [facility], Patient's level of ADLs: MINIMAL ASSIST Patient has working utilities: all working DME: cane, walker Follow-up physician's appointment after d/c: will be made by hospitalist nurse director upon discharge Does patient want to access PORTAL?: no Discharge plan discussed with patient and , stated patient lives at home with him, she uses a cane or walker occasionally, she recently has had a CVA and currently has [facility], physical therapy, speech, and aids, would like to have nursing as well. he stated she also has the SNAP program and someone comes to their home and does light house cleaning. she has frozen meals delivered weekly, one meal per day. stated patient would return home when medically stable and resume current services, case management will send a resume order to psychiatric hospital. CECILIA MURPHY
--- NOTE | 2019-09-05 11:47 | NUR ---
PRN NORCO AND ZOFRAN WERE GIVEN FOR PT'S GENERALIZED PAIN AND UPSET STOMACH. WILL MONITOR PATIENT AND REASSESS EFFECTIVENESS.
[2019-09-05 12:00] VITALS: BP 125/95
--- NOTE | 2019-09-05 12:47 | NUR ---
PRN NORCO AND ZOFRAN WERE EFFECTIVE. PT IS RESTING COMFORTABLY IN BED WITH NO SIGNS OF DISTRESS.
--- NOTE | 2019-09-05 15:15 | NUR ---
Received call from Nancy at [facility] regarding , Ulises, concerned about patient being discharged. Notified hospitalist nurse director. Ulises's cell phone is [phone].
[2019-09-05 16:00] VITALS: BP 103/56
--- NOTE | 2019-09-05 16:14 | NUR ---
Discharge instructions reviewed with patient/family. Patient receptive and verbalizes understanding. Follow-up care arranged. Written instructions given to patient/family. IV REMOVED AND GEOGRAPHY INSTRUCTOR REMOVED. BLAYNE GALVEZ
--- NOTE | 2019-09-06 12:54 | NUR ---
case management faxed patient's information to [facility] and notified them patient was discharged yesterday to home
== END 2019-09-05 16:14 | disposition home health service (06) | DRG 309 ==
LOC: ED 09:51 → 5E 11:35 → EDHOLD 11:35 → 5E 12:43
PROVIDERS: Emergency Medicine; Internal Medicine; ADMIT Family Medicine
DX: R00.1 Bradycardia, unspecified (principal); I13.0 Hypertensive heart and chronic kidney disease with heart failure and stage 1 through stage 4 chronic kidney disease, or unspecified chronic kidney disease; I50.32 Chronic diastolic (congestive) heart failure; E11.22 Type 2 diabetes mellitus with diabetic chronic kidney disease; R79.89 Other specified abnormal findings of blood chemistry; D64.9 Anemia, unspecified; E87.8 Other disorders of electrolyte and fluid balance, not elsewhere classified; E11.65 Type 2 diabetes mellitus with hyperglycemia; R74.0 Nonspecific elevation of levels of transaminase and lactic acid dehydrogenase [LDH]; N18.3 Chronic kidney disease, stage 3 (moderate); F32.9 Major depressive disorder, single episode, unspecified; E78.5 Hyperlipidemia, unspecified; K21.9 Gastro-esophageal reflux disease without esophagitis; I25.10 Atherosclerotic heart disease of native coronary artery without angina pectoris; F41.9 Anxiety disorder, unspecified; K57.90 Diverticulosis of intestine, part unspecified, without perforation or abscess without bleeding; I48.0 Paroxysmal atrial fibrillation; G89.29 Other chronic pain; I25.2 Old myocardial infarction; Z95.5 Presence of coronary angioplasty implant and graft; Z86.73 Personal history of transient ischemic attack (TIA), and cerebral infarction without residual deficits; Z90.710 Acquired absence of both cervix and uterus; Z93.3 Colostomy status; Z87.891 Personal history of nicotine dependence; Z82.49 Family history of ischemic heart disease and other diseases of the circulatory system; Z79.899 Other long term (current) drug therapy; Z79.01 Long term (current) use of anticoagulants

== ENCOUNTER 2019-09-17 14:11 | Observation (INO) | payer OTHER, MEDICAID ==
[~2019-09-17] VITALS: Ht 165.1 cm; Wt 80.4 kg
[~2019-09-17 14:11] MED LIST changes: +METOPROLOL SUCC50 M2 PO
[2019-09-17 14:16] VITALS: BP 145/72
[2019-09-17 14:40] LABS: BASO % 0.7 % (0.0-1.0); EOS # 0.1 10*3/uL (0.0-0.4); EOS % 0.9 % (1.0-4.0); HEMATOCRIT 31.8 % (37.0-47.0); LYMPH # 0.7 10*3/uL (1.3-4.4); LYMPH % 13.1 % (27.0-41.0); MEAN CELL VOLUME 88.3 fl (81.0-99.0); MEAN CORPUSCULAR HGB 28.1 pg (27.0-31.0); MEAN CORPUSCULAR HGB CONC 31.8 g/dl (33.0-37.0); MEAN PLATELET VOLUME 10.1 fl (9.6-12.3); MONO # 0.5 10*3/uL (0.1-1.0); MONO % 10.1 % (3.0-9.0); NEUT % 74.6 % (47.0-73.0); PLATELET COUNT AUTOMATED 234 10*3/uL (130-400); RED CELL DISTRI WIDTH 14.8 % (0-14.5); WHITE BLOOD COUNT 5.4 10*3/uL (4.8-10.8)
[2019-09-17 14:41] LABS: ACT PARTIAL THROMBO TIME 55.1 SECONDS (20.0-32.1); INTERNATIONAL NORM RATIO 1.2 (2.0-3.5)
[2019-09-17 14:47] LABS: ALBUMIN 3.7 gm/dl (3.1-4.5); CREATININE 1.3 mg/dL (0.55-1.02); POTASSIUM 4.2 mmol/L (3.5-5.1); TOTAL PROTEIN 7.8 gm/dL (6.4-8.2)
[2019-09-17 14:52] LABS: TROPONIN I 0.124 ng/ml (<0.045)
[2019-09-17 15:22] VITALS: BP 152/68
[2019-09-17 16:00] VITALS: BP 152/68
[2019-09-17] MEDS ORDERED: LOPRESSOR25 MG PO (16:21)
[2019-09-17 16:35] VITALS: BP 157/66; BP 160/75
[2019-09-17 20:00] VITALS: BP 124/69
[2019-09-18] VITALS: BP 90/50
[2019-09-18 06:17] LABS: CREATININE 1.13 mg/dL (0.55-1.02); POTASSIUM 3.7 mmol/L (3.5-5.1)
[2019-09-18 06:31] LABS: BASO # 0.1 10*3/uL (0.0-0.1); BASO % 0.7 % (0.0-1.0); EOS # 0.1 10*3/uL (0.0-0.4); EOS % 1.1 % (1.0-4.0); HEMATOCRIT 33.9 % (37.0-47.0); LYMPH # 0.8 10*3/uL (1.3-4.4); MEAN CELL VOLUME 90.9 fl (81.0-99.0); MEAN CORPUSCULAR HGB 27.3 pg (27.0-31.0); MEAN CORPUSCULAR HGB CONC 30.1 g/dl (33.0-37.0); MEAN PLATELET VOLUME 10.9 fl (9.6-12.3); MONO # 0.4 10*3/uL (0.1-1.0); MONO % 6.1 % (3.0-9.0); NEUT # 5.9 10*3/uL (2.3-7.9); NEUT % 80.7 % (47.0-73.0); PLATELET COUNT AUTOMATED 262 10*3/uL (130-400); RED BLOOD COUNT 3.73 10*6/uL (4.10-5.10); WHITE BLOOD COUNT 7.3 10*3/uL (4.8-10.8)
[2019-09-18 12:00] VITALS: BP 114/61
[2019-09-18 16:00] VITALS: BP 116/62
[2019-09-18 20:00] VITALS: BP 128/74
[2019-09-19] VITALS: BP 114/92
[2019-09-19 06:55] LABS: BASO # 0.1 10*3/uL (0.0-0.1); BASO % 1.1 % (0.0-1.0); EOS # 0.1 10*3/uL (0.0-0.4); EOS % 1.8 % (1.0-4.0); HEMATOCRIT 33.2 % (37.0-47.0); LYMPH # 0.9 10*3/uL (1.3-4.4); LYMPH % 16.1 % (27.0-41.0); MEAN CELL VOLUME 90.2 fl (81.0-99.0); MEAN CORPUSCULAR HGB 27.7 pg (27.0-31.0); MEAN CORPUSCULAR HGB CONC 30.7 g/dl (33.0-37.0); MEAN PLATELET VOLUME 10.6 fl (9.6-12.3); MONO # 0.5 10*3/uL (0.1-1.0); MONO % 9.2 % (3.0-9.0); NEUT # 3.9 10*3/uL (2.3-7.9); NEUT % 71.1 % (47.0-73.0); PLATELET COUNT AUTOMATED 252 10*3/uL (130-400); RED BLOOD COUNT 3.68 10*6/uL (4.10-5.10); WHITE BLOOD COUNT 5.5 10*3/uL (4.8-10.8)
[2019-09-19 07:05] LABS: CREATININE 1.12 mg/dL (0.55-1.02); POTASSIUM 3.9 mmol/L (3.5-5.1)
== END 2019-09-19 09:00 | disposition short-term general hospital (02) ==
LOC: ED 14:11 → EDHOLD 15:09 → 4E 15:09
PROVIDERS: Emergency Medicine; Internal Medicine; Student in an Organized Health Care Education/Training Program; ADMIT Emergency Medicine
DX: E11.65 Type 2 diabetes mellitus with hyperglycemia (principal); E83.41 Hypermagnesemia; D64.9 Anemia, unspecified; F41.9 Anxiety disorder, unspecified; E78.5 Hyperlipidemia, unspecified; I10 Essential (primary) hypertension; E03.9 Hypothyroidism, unspecified; K21.9 Gastro-esophageal reflux disease without esophagitis; D68.9 Coagulation defect, unspecified; I48.91 Unspecified atrial fibrillation; I12.9 Hypertensive chronic kidney disease with stage 1 through stage 4 chronic kidney disease, or unspecified chronic kidney disease; E11.22 Type 2 diabetes mellitus with diabetic chronic kidney disease; N18.3 Chronic kidney disease, stage 3 (moderate); E66.9 Obesity, unspecified; E11.40 Type 2 diabetes mellitus with diabetic neuropathy, unspecified; R00.1 Bradycardia, unspecified; I25.2 Old myocardial infarction; Z86.73 Personal history of transient ischemic attack (TIA), and cerebral infarction without residual deficits

== ENCOUNTER 2020-01-09 17:05 | Emergency (ER) | payer OTHER, MEDICAID ==
[~2020-01-09 17:05] MED LIST changes: +ATIVAN1 MG PO; +IMDUR SA30 MG PO; +METOPROLOL SUCC50 M1 PO; +MIRAPEX0.5 MG PO; +TRAZODONE100 MG PO; -TRAZODONE50 MG PO
[2020-01-09 18:25] LABS: BASO # 0.1 10*3/uL (0.0-0.1); BASO % 0.7 % (0.0-1.0); EOS # 0.1 10*3/uL (0.0-0.4); EOS % 1.2 % (1.0-4.0); HEMATOCRIT 34.9 % (37.0-47.0); LYMPH # 1.2 10*3/uL (1.3-4.4); LYMPH % 14.3 % (27.0-41.0); MEAN CELL VOLUME 86.6 fl (81.0-99.0); MEAN CORPUSCULAR HGB 27.3 pg (27.0-31.0); MEAN CORPUSCULAR HGB CONC 31.5 g/dl (33.0-37.0); MEAN PLATELET VOLUME 10.2 fl (9.6-12.3); MONO # 0.8 10*3/uL (0.1-1.0); MONO % 9.7 % (3.0-9.0); NEUT # 6.3 10*3/uL (2.3-7.9); NEUT % 73.5 % (47.0-73.0); PLATELET COUNT AUTOMATED 94 10*3/uL (130-400); RED BLOOD COUNT 4.03 10*6/uL (4.10-5.10); RED CELL DISTRI WIDTH 13.9 % (0-14.5); WHITE BLOOD COUNT 8.5 10*3/uL (4.8-10.8)
[2020-01-09 18:39] LABS: ALBUMIN 3.5 gm/dl (3.1-4.5); CREATININE 1.22 mg/dL (0.55-1.02); POTASSIUM 4.1 mmol/L (3.5-5.1); TOTAL PROTEIN 7.3 gm/dL (6.4-8.2)
[2020-02-06] MEDS ORDERED: PLAVIX75 M1 PO (11:01)
[2020-02-06] MEDS ORDERED: TOPROL XL25 MG PO (11:02)
[2020-02-06] MEDS ORDERED: AMBIEN10 M1 PO (11:05)
[2020-02-06] MEDS ORDERED: MAGNESIUM250 M2 PO (11:07)
[2020-02-06] MEDS ORDERED: AIMOVIG AU70 MG/1 ML SQ (11:09)
[2020-02-06] MEDS ORDERED: NURTEC ODT75 MG PO (11:10)
[2020-02-06] MEDS ORDERED: PROVENTIL HFA6.7 GM INH (11:13)
== END 2020-01-09 19:20 | disposition home or self-care (01) ==
LOC: ED 17:05
PROVIDERS: Emergency Medicine
DX: R04.0 Epistaxis (principal); Z79.899 Other long term (current) drug therapy

== ENCOUNTER 2020-01-10 11:49 | Emergency (ER) | payer OTHER ==
[~2020-01-10] VITALS: Ht 165.1 cm; Wt 86.2 kg
[~2020-01-10 11:49] MED LIST changes: -ATIVAN1 MG PO; -MIRAPEX0.5 MG PO; -TRAZODONE100 MG PO; +TRAZODONE50 MG PO
== END 2020-01-10 13:45 | disposition home or self-care (01) ==
LOC: ED 11:49
DX: R04.0 Epistaxis (principal); I48.91 Unspecified atrial fibrillation; F41.9 Anxiety disorder, unspecified; E78.5 Hyperlipidemia, unspecified; I12.9 Hypertensive chronic kidney disease with stage 1 through stage 4 chronic kidney disease, or unspecified chronic kidney disease; E11.22 Type 2 diabetes mellitus with diabetic chronic kidney disease; N18.30 Chronic kidney disease, stage 3 unspecified; E03.9 Hypothyroidism, unspecified; Z90.710 Acquired absence of both cervix and uterus; Z79.899 Other long term (current) drug therapy

== ENCOUNTER → 2020-02-05 | Outpatient (CLI) | payer OTHER ==
[~2020-02-05] MED LIST changes: +AIMOVIG AU70 MG/1 ML SQ; +AMBIEN10 M1 PO; +ATIVAN1 MG PO; +AVPAK AZITHROM250 M1 PO; +CEFTRIAXONE1 GM IJ; +MAGNESIUM250 M2 PO; +MIRAPEX0.5 MG PO; +NOVOLOG MI100 UNIT/1 SQ; +NURTEC ODT75 MG PO; +PREGABALIN75 MG PO; +PROVENTIL HFA6.7 GM INH; +RESTASIS1 EACH OP; +TOPROL XL25 MG PO; +TRAZODONE100 MG PO; -TRAZODONE50 MG PO
== END | disposition home or self-care (01) ==
LOC: COVID19 16:43
PROVIDERS: ATTEND Internal Medicine Cardiovascular Disease
DX: Z20.828 Contact with and (suspected) exposure to other viral communicable diseases (principal); I25.10 Atherosclerotic heart disease of native coronary artery without angina pectoris; I48.20 Chronic atrial fibrillation, unspecified

== ENCOUNTER 2020-02-07 11:52 | Emergency (ER) | payer OTHER ==
[~2020-02-07] VITALS: Ht 165.1 cm; Wt 86.2 kg
[~2020-02-07 11:52] MED LIST changes: -AVPAK AZITHROM250 M1 PO; -CEFTRIAXONE1 GM IJ; -NOVOLOG MI100 UNIT/1 SQ; -PREGABALIN75 MG PO; -RESTASIS1 EACH OP
[2020-02-07 12:29] LABS: BASO % 0.7 % (0.0-1.0); EOS # 0.1 10*3/uL (0.0-0.4); EOS % 1.2 % (1.0-4.0); LYMPH % 16.1 % (27.0-41.0); MEAN CELL VOLUME 87.6 fl (81.0-99.0); MEAN CORPUSCULAR HGB 27.5 pg (27.0-31.0); MEAN CORPUSCULAR HGB CONC 31.4 g/dl (33.0-37.0); MEAN PLATELET VOLUME 9.9 fl (9.6-12.3); MONO # 0.5 10*3/uL (0.1-1.0); NEUT # 4.4 10*3/uL (2.3-7.9); NEUT % 73.7 % (47.0-73.0); PLATELET COUNT AUTOMATED 102 10*3/uL (130-400); RED BLOOD COUNT 4.11 10*6/uL (4.10-5.10); RED CELL DISTRI WIDTH 14.4 % (0-14.5)
[2020-02-07 12:42] LABS: ACT PARTIAL THROMBO TIME 47.3 SECONDS (20.0-32.1); INTERNATIONAL NORM RATIO 1.1 (2.0-3.5)
[2020-02-07 12:46] LABS: ALBUMIN 3.8 gm/dl (3.1-4.5); ALKALINE PHOSPHATASE 67 U/L (45-117); BUN 24 mg/dl (7-24); CHLORIDE 108 mmol/L (98-107); CREATININE 1.29 mg/dL (0.55-1.02); POTASSIUM 4.3 mmol/L (3.5-5.1); SGOT/AST 19 IU/L (3-35); SGPT/ALT 14 U/L (12-78); SODIUM 138 mmol/L (136-145); TOTAL PROTEIN 7.8 gm/dL (6.4-8.2)
[2020-02-07 13:08] LABS: TROPONIN I < 0.015 ng/ml (<0.045)
== END 2020-02-07 16:25 | disposition home or self-care (01) ==
LOC: ED 11:52
PROVIDERS: Emergency Medicine
DX: J44.1 Chronic obstructive pulmonary disease with (acute) exacerbation (principal); Z79.899 Other long term (current) drug therapy; Z79.2 Long term (current) use of antibiotics; Z90.49 Acquired absence of other specified parts of digestive tract

== ENCOUNTER → 2020-02-09 | Day surgery (SDC) | payer OTHER ==
[~2020-02-09] VITALS: Ht 165.1 cm; Wt 86.2 kg
[~2020-02-09] MED LIST changes: +AVPAK AZITHROM250 M1 PO; +CEFTRIAXONE1 GM IJ; +NOVOLOG MI100 UNIT/1 SQ; +PREGABALIN75 MG PO; +RESTASIS1 EACH OP
[2020-02-09 11:19] VITALS: BP 169/98
[2020-02-09 12:07] VITALS: BP 130/69
[2020-02-09 12:22] VITALS: BP 144/71
== END ==
LOC: SDC 02-06 08:00
PROVIDERS: ATTEND Student in an Organized Health Care Education/Training Program
DX: I48.4 Atypical atrial flutter (principal); E11.22 Type 2 diabetes mellitus with diabetic chronic kidney disease; E11.40 Type 2 diabetes mellitus with diabetic neuropathy, unspecified; N18.4 Chronic kidney disease, stage 4 (severe); I25.10 Atherosclerotic heart disease of native coronary artery without angina pectoris; I25.2 Old myocardial infarction; G25.81 Restless legs syndrome; I12.9 Hypertensive chronic kidney disease with stage 1 through stage 4 chronic kidney disease, or unspecified chronic kidney disease; J45.909 Unspecified asthma, uncomplicated; F41.9 Anxiety disorder, unspecified; F32.9 Major depressive disorder, single episode, unspecified; M79.7 Fibromyalgia; G47.00 Insomnia, unspecified; E78.00 Pure hypercholesterolemia, unspecified; Z86.73 Personal history of transient ischemic attack (TIA), and cerebral infarction without residual deficits; Z87.891 Personal history of nicotine dependence; Z79.01 Long term (current) use of anticoagulants; Z79.899 Other long term (current) drug therapy

== ENCOUNTER 2020-03-13 21:45 | Observation (INO) | payer OTHER ==
[~2020-03-13] VITALS: Ht 165.1 cm; Wt 88.9 kg
[~2020-03-13 21:45] MED LIST changes: -AVPAK AZITHROM250 M1 PO; -CEFTRIAXONE1 GM IJ; -NOVOLOG MI100 UNIT/1 SQ; -PREGABALIN75 MG PO; -RESTASIS1 EACH OP
[2020-03-13 21:51] VITALS: BP 156/99
[2020-03-13 22:05] LABS: BASO # 0.1 10*3/uL (0.0-0.1); BASO % 0.5 % (0.0-1.0); EOS # 0.1 10*3/uL (0.0-0.4); EOS % 0.5 % (1.0-4.0); HEMATOCRIT 32.9 % (37.0-47.0); LYMPH % 9.2 % (27.0-41.0); MEAN CELL VOLUME 90.1 fl (81.0-99.0); MEAN CORPUSCULAR HGB 28.2 pg (27.0-31.0); MEAN CORPUSCULAR HGB CONC 31.3 g/dl (33.0-37.0); MEAN PLATELET VOLUME 10.8 fl (9.6-12.3); MONO # 0.7 10*3/uL (0.1-1.0); MONO % 6.4 % (3.0-9.0); NEUT # 8.5 10*3/uL (2.3-7.9); NEUT % 82.8 % (47.0-73.0); PLATELET COUNT AUTOMATED 84 10*3/uL (130-400); RED BLOOD COUNT 3.65 10*6/uL (4.10-5.10); RED CELL DISTRI WIDTH 15.3 % (0-14.5); WHITE BLOOD COUNT 10.3 10*3/uL (4.8-10.8)
[2020-03-13 22:17] LABS: ACT PARTIAL THROMBO TIME 47.3 SECONDS (20.0-32.1); INTERNATIONAL NORM RATIO 1.3 (2.0-3.5)
[2020-03-13 22:21] LABS: ALBUMIN 3.5 gm/dl (3.1-4.5); CREATININE 1.35 mg/dL (0.55-1.02); POTASSIUM 4.3 mmol/L (3.5-5.1); TOTAL PROTEIN 7.2 gm/dL (6.4-8.2)
[2020-03-13 22:27] LABS: TROPONIN I 0.239 ng/ml (<0.045)
[2020-03-14] VITALS (11 sets, daily range): BP systolic 70–136; BP diastolic 0–81
--- NOTE | 2020-03-14 00:43 | NUR ---
SPOKE WITH PT REGARDING PT ADMISSION. INFORMED PT WOULD BE STAYING THE NIGHT. REPORTS HE WILL CALL BACK LATER WITH UPDATE.
--- NOTE | 2020-03-14 01:25 | NUR ---
PT NUMBER IS [phone].
--- NOTE | 2020-03-14 03:25 | NUR ---
PT RESTING AT THIS TIME. NO VOICED COMPLAINTS. PT SLEEPING. CALL LIGHT WITHIN REACH. WILL CONTINUE TO MONITOR.
--- NOTE | 2020-03-14 05:21 | NUR ---
PT REMAINS RESTING IN BED. CALL LIGHT WITHIN REACH. WILL CONTINUE TO MONITOR. NO VOICED COMPLAINTS. NO DISTRESS NOTED.
--- NOTE | 2020-03-14 05:44 | NUR ---
CONSULTED DR MONTES, CARDIOLOGY. JYOTI NOTES HE WOULD LIKE HEPARIN TO BE STARTTED, WEIGHT-BASED.
[2020-03-14 05:46] LABS: ALBUMIN 3.2 gm/dl (3.1-4.5); CREATININE 1.26 mg/dL (0.55-1.02); POTASSIUM 4.2 mmol/L (3.5-5.1); TOTAL PROTEIN 6.6 gm/dL (6.4-8.2)
[2020-03-14 05:52] LABS: FREE T4 1.16 ng/dl (0.76-1.46); THYROID STIM HORMONE (HS) 1.47 uIU/ml (0.358-4.75)
[2020-03-14 06:06] LABS: BASO # 0.1 10*3/uL (0.0-0.1); BASO % 0.5 % (0.0-1.0); EOS # 0.1 10*3/uL (0.0-0.4); EOS % 0.7 % (1.0-4.0); HEMATOCRIT 32.1 % (37.0-47.0); LYMPH # 1.3 10*3/uL (1.3-4.4); LYMPH % 13.6 % (27.0-41.0); MEAN CELL VOLUME 91.7 fl (81.0-99.0); MEAN CORPUSCULAR HGB 28.9 pg (27.0-31.0); MEAN CORPUSCULAR HGB CONC 31.5 g/dl (33.0-37.0); MEAN PLATELET VOLUME 11.3 fl (9.6-12.3); MONO # 0.7 10*3/uL (0.1-1.0); MONO % 7.1 % (3.0-9.0); NEUT # 7.6 10*3/uL (2.3-7.9); NEUT % 77.7 % (47.0-73.0); PLATELET COUNT AUTOMATED 85 10*3/uL (130-400); RED CELL DISTRI WIDTH 15.6 % (0-14.5); WHITE BLOOD COUNT 9.8 10*3/uL (4.8-10.8)
--- NOTE | 2020-03-14 06:19 | NUR ---
PT DENIES WOUNDS.
[2020-03-14 07:19] LABS: VITAMIN D, 25-HYDROXY 28.5 ng/mL (30-100)
--- NOTE | 2020-03-14 11:53 | NUR ---
CALLED PHYSICIAN TAKING CARE OF THIS PT TO LET THEM KNOW THAT PT WAS C/O CHEST PAIN EARLIER, SHORTLY AFTER I DID AN EKG AND SHOWED DR MAGAÑA WHO STATED IT LOOKED OK. I ALSO LET THEM KNOW PT IS STILL C/O LEFT SIDED CHEST PAIN AND SHE WOULD LIKE SOMEHTING FOR PAIN
--- NOTE | 2020-03-14 12:17 | NUR ---
PATIENT COMPLAINING OF CHEST PAIN, RATING 7/10. PRN NORCO 5/325MG PO GIVEN AT THIS TIME.
--- NOTE | 2020-03-14 12:46 | NUR ---
PT NOW IN ISOLATION FOR SUSPECTED COVID PER DR BORDEN
--- NOTE | 2020-03-14 13:03 | NUR ---
PTS APTT IS 116.2. CALLED RESIDENT WHO IS TAKING CARE OF THIS PATIENT AND WHEN TOLD THE CRITIAL ALL THAT WAS SAID IS "OKAY." PER PROTOCOL, HEPARIN WILL BE HELD FOR X1 HOUR THEN DECREASED BY 3UNITS
--- NOTE | 2020-03-14 15:22 | NUR ---
NOTIFIED HOSPITALIST OF CRITICAL PTT 82.2
--- NOTE | 2020-03-14 15:30 | NUR ---
PTS APTT IS 82.2. PER PROTOCOL, HEPARIN IS TO BE HELD FOR X1 HOUR
--- NOTE | 2020-03-14 19:19 | NUR ---
REPORT RECIEVED FROM Ilene TREVIZO RN
--- NOTE | 2020-03-14 20:33 | NUR ---
THE PATIENT GAVE VERBAL CONSENT TO SPEAK WITH HER FAMILY ABOUT HER CONDITION
--- NOTE | 2020-03-14 21:54 | NUR ---
THE PATIENT IS C/O CHEST PAIN AND SAID "SOMETHING IS WRONG, PLEASE DO NOT LET ME ." I TOLD DR MILES AND HE SAID TO GET A STAT EKG AND Marilia CHEEK RN CALLED THE RESIDENT ASSIGNMENT OFFICER. THE EKG WAS DONE AND GIVEN TO THE RESIDENT.
--- NOTE | 2020-03-14 22:29 | NUR ---
BGM IS 179, THE PATIENT IS DIAPHORETIC, VOICING CONCERN OF IMPENDING DOOM. THE PATIENT WAS MOVED TO ROOM 3. A 3RD IV WAS STARTED A 20 IN THE LEFT ANKLE. A BOLUS OF 0.9NS VIA PRESSURE BAG IS INFUSING. THE RESIDENTS HAVE A CALL OUT TO DR MONTES
--- NOTE | 2020-03-14 22:43 | NUR ---
THE ORDERED MORPHINE WAS HELD DT TO HYPOTENSION
--- NOTE | 2020-03-14 23:59 | NUR ---
THE DOPIMINE WAS TITRATED DOWN TO 4MCG/KG/MIN
[2020-03-15] VITALS (15 sets, daily range): BP systolic 95–156; BP diastolic 54–105
--- NOTE | 2020-03-15 00:05 | NUR ---
THE DOPIMINE WAS TITRATED DOWN TO 3MCG/KG/MIN
[2020-03-15] MEDS ORDERED: AMIODARONE HYD200 MG PO (00:18)
[2020-03-15] MEDS ORDERED: MAGNESIUM250 M2 PO (00:19)
[2020-03-15] MEDS ORDERED: PREGABALIN75 MG PO (00:36)
--- NOTE | 2020-03-15 00:41 | NUR ---
THE DOPAMINE WAS TITRATED DOWN TO 1MCG/KG/MIN
--- NOTE | 2020-03-15 01:19 | NUR ---
I CALLED DR MONTES WITH THE TROPONIN OF 3.060. I GAVE HIM HER CURRENT VITALS. HE ADVISED TO CONTINUE TO MONITOR THE PATIENT. HE ADVISED I DID NOT NEED TO CALL TONIGHT WITH ANY MORE TROPONINS.
--- NOTE | 2020-03-15 03:36 | NUR ---
THE PATIENTS BLOOD PRESSURE IS 144/105. THE DOPAMINE WAS STOPPED AT THIS TIME. IF THE B/P DROPS BELOW 100 SYSTOLIC IT WILL RESUME AGAIN
--- NOTE | 2020-03-15 03:37 | NUR ---
THE PATIENT WAS GIVEN A BSC. I CHANGED HER BED AND GOWN.
[2020-03-15 04:06] LABS: BASO % 0.1 % (0.0-1.0); EOS % 0.1 % (1.0-4.0); LYMPH # 0.8 10*3/uL (1.3-4.4); MEAN CELL VOLUME 90.7 fl (81.0-99.0); MEAN CORPUSCULAR HGB 28.5 pg (27.0-31.0); MEAN CORPUSCULAR HGB CONC 31.5 g/dl (33.0-37.0); MEAN PLATELET VOLUME 10.5 fl (9.6-12.3); MONO # 0.7 10*3/uL (0.1-1.0); MONO % 6.2 % (3.0-9.0); NEUT # 8.9 10*3/uL (2.3-7.9); NEUT % 84.9 % (47.0-73.0); PLATELET COUNT AUTOMATED 69 10*3/uL (130-400); RED BLOOD COUNT 3.75 10*6/uL (4.10-5.10); RED CELL DISTRI WIDTH 15.5 % (0-14.5); WHITE BLOOD COUNT 10.5 10*3/uL (4.8-10.8)
[2020-03-15 04:21] LABS: CREATININE 1.48 mg/dL (0.55-1.02); POTASSIUM 4.1 mmol/L (3.5-5.1)
--- NOTE | 2020-03-15 04:25 | NUR ---
APTT 51.2. NO CHANGE IS NEED FOR THE HEPARIN DRIP
--- NOTE | 2020-03-15 07:10 | NUR ---
REPORT RECEIVED FROM YEFRI MONTES RN.
--- NOTE | 2020-03-15 08:06 | NUR ---
C/O HEADACHE MEDICATED WITH 2 TYLENOL PO.
--- NOTE | 2020-03-15 09:25 | NUR ---
PT ASSISTED WITH BREAKFAST, PT SAYS HEADACHE IS BETTER, TYLENOL EFFECTIVE.
--- NOTE | 2020-03-15 10:15 | NUR ---
A 64, admitted to 4E, under the services of ANYI Rubi DO with a diagnosis of AFIB, VENTRCULAR, CHEST PAIN. Chief complaint is CHEST PAIN, DYSPNEA. Patient arrived via stretcher from ER. Monitor applied. Initial assessment completed. Vital signs taken and recorded. ANYI RUBI DO notified of admission to the unit. Orders received. See assessment for past medical history, medications and allergies. Patient and/or family oriented to unit. [facility] ROOM 406 visitation policy reviewed. Clothing/patient valuable form completed. JUN CARTER
--- NOTE | 2020-03-15 10:19 | NUR ---
DELAY IN TAKING PT UPSTAIRS JUN GLOVER STATES SHE NEEDS TO TAKE A PT UPSTAIRS ON BIPAP AND PT PULL OUT NG TUBE AND IV'S, WILL CALL WHEN SHE IS READY.
[2020-03-15] MEDS ORDERED: NOVOLOG MI100 UNIT/1 SQ (14:15)
[2020-03-15] MEDS ORDERED: PROVENTIL HFA6.7 GM INH (14:26)
[2020-03-15] MEDS ORDERED: NURTEC ODT75 MG PO (14:30)
[2020-03-15] MEDS ORDERED: PRAMIPEXOLE DI0.5 MG PO (14:31)
[2020-03-15] MEDS ORDERED: RESTASIS1 EACH OP (14:36)
--- NOTE | 2020-03-15 22:55 | NUR ---
NOTIFIED DR. COSME THAT PATIENT IS C/O 10/10 CHEST PAIN THAT RADIATES DOWN HER ARMS BILATERALLY. PATIENT TEARFUL. ALSO NOTIFIED HER UPON ASSESSMENT PATIENT HEPARIN DRIP NOT INFUSING. STAT APTT ORDERED AND RESTARTED HEPARIN DRIP. PER DR. TARIQ NOTIFY CARDIOLOGY.
--- NOTE | 2020-03-15 23:02 | NUR ---
PAGED CARDIOLOGY REGARDING PATIENT CHEST PAIN. WAITING ON A CALL BACK.
--- NOTE | 2020-03-15 23:08 | NUR ---
SPOKE WITH DR. GARCIAS REGARDING CHEST PAIN. STATED TO ORDER NITRO PASTE Q6HR. IF PRESSURE STARTS TO DROP REMOVE. ORDER EKG IN THE AM. NO NEW ORDERS RECEIVED. ORDERS PLACED. WILL CONTINUE TO MONITOR.
[2020-03-16] VITALS: BP 127/96
[2020-03-16 04:00] VITALS: BP 137/84
--- NOTE | 2020-03-16 07:11 | NUR ---
Shift chart check completed.
[2020-03-16 07:12] LABS: CREATININE 1.67 mg/dL (0.55-1.02); POTASSIUM 4.4 mmol/L (3.5-5.1)
[2020-03-16 07:23] LABS: BASO % 0.1 % (0.0-1.0); HEMATOCRIT 33.6 % (37.0-47.0); LYMPH # 1.7 10*3/uL (1.3-4.4); MEAN CELL VOLUME 88.9 fl (81.0-99.0); MEAN CORPUSCULAR HGB CONC 31.5 g/dl (33.0-37.0); MEAN PLATELET VOLUME 11.8 fl (9.6-12.3); MONO # 1.5 10*3/uL (0.1-1.0); MONO % 9.6 % (3.0-9.0); NEUT # 11.8 10*3/uL (2.3-7.9); NEUT % 78.5 % (47.0-73.0); NUCLEATED RED BLOOD CELL 0.1 % (0.0-0.0); PLATELET COUNT AUTOMATED 71 10*3/uL (130-400); RED BLOOD COUNT 3.78 10*6/uL (4.10-5.10); RED CELL DISTRI WIDTH 15.7 % (0-14.5); WHITE BLOOD COUNT 15.1 10*3/uL (4.8-10.8)
[2020-03-16 08:00] VITALS: BP 120/76
[2020-03-16 12:00] VITALS: BP 131/95
--- NOTE | 2020-03-16 12:52 | NUR ---
Data Processing Auditor spoke with Pt. at home due to Covid Precautions and Isolation. Pt. did not answer the Phone in her Room. Patient lives at home with her There are 4 steps in the home. Physician: Dr. Mendoza [facility]acy: [facility] Home health services: none at this time. Previously had [facility] Patient's level of ADLs: Independent Patient has working utilities: Yes all are working DME: None Follow-up physician's appointment after d/c: Per Hospitalist Nurse Director Does patient want to access PORTAL?: No Discharge plan discussed with Pt. steven states that Pt. Lives at Home with Him. Is Independent in her Care. Previously has had [facility] and Is receptive to Home Health if Ordered. Plans to return home when discharged. can Provide Transportation at Discharge. YOU DE LA FUENTE
--- NOTE | 2020-03-16 15:50 | NUR ---
SPOKE TO DR. SHARMA, ADVISED THAT PATIENT WAS COVID NEGATIVE, HE VERSED SHE COULD COME OUT OF ISOLATION, NOTIFIED DR. HARKINS, HE IS OK WITH THAT, ORDERE RECEIVED TO TAKE PATIENT OUT OF ISOLATION.
[2020-03-16 16:00] VITALS: BP 115/85
[2020-03-16 20:00] VITALS: BP 133/88
[2020-03-17] VITALS: BP 124/80
--- NOTE | 2020-03-17 04:49 | NUR ---
SLEEPING NO ACUTE DISTRESS NOTED.
--- NOTE | 2020-03-17 05:19 | NUR ---
24 HR chart check completed.
[2020-03-17 06:40] LABS: HEMATOCRIT 35.3 % (37.0-47.0); MEAN CORPUSCULAR HGB 28.5 pg (27.0-31.0); MEAN CORPUSCULAR HGB CONC 30.9 g/dl (33.0-37.0); MEAN PLATELET VOLUME 11.6 fl (9.6-12.3); NUCLEATED RED BLOOD CELL 0.1 10*3/uL (0.0-0.0); NUCLEATED RED BLOOD CELL 0.5 % (0.0-0.0); PLATELET COUNT AUTOMATED 53 10*3/uL (130-400); RED BLOOD COUNT 3.82 10*6/uL (4.10-5.10); RED CELL DISTRI WIDTH 15.9 % (0-14.5); WHITE BLOOD COUNT 15.9 10*3/uL (4.8-10.8)
--- NOTE | 2020-03-17 06:59 | NUR ---
PTT 69.6 WHICH IS NO CHANGE ON HEPARIN PROTOCOL RATED REMAINS SAME RATE 7.68ML/HR (768 UNITS /HR).
[2020-03-17 07:03] LABS: CHLORIDE 108 mmol/L (98-107); CREATININE 1.88 mg/dL (0.55-1.02); POTASSIUM 4.8 mmol/L (3.5-5.1); SODIUM 139 mmol/L (136-145)
[2020-03-17 07:04] LABS: BUN 52 mg/dl (7-24)
[2020-03-17 07:19] LABS: MEAN CELL VOLUME 92.4 fl (81.0-99.0)
[2020-03-17 08:00] VITALS: BP 102/71
[2020-03-17 09:05] LABS: PLATELET SUFFICIENCY LOW (NORMAL); TOTAL CELLS COUNTED 100 #CELLS
[2020-03-17] MEDS ORDERED: CEFTRIAXONE1 GM IJ (11:14)
[2020-03-17] MEDS ORDERED: AVPAK AZITHROM250 M1 PO (11:14)
[2020-03-17 12:00] VITALS: BP 110/73
--- NOTE | 2020-03-17 13:10 | NUR ---
CALL PLACED TO [facility], SPOKE TO CAMILLE RN, NURSE TO NURSE REPORT GIVEN, LIFE TEAM HERE TO TAKE PATIENT TO [facility], REPORT GIVEN, TELEMERTY REMOVED, IV IN LEFT FOOT REMOVED, CALL [PLACED TO PATIENTS SPOUSE ADVISED THAT PATIENT WAS SENT TO [facility]. VERSED UNDERSTANDING. JUN CARTER
== END 2020-03-17 13:10 | disposition short-term general hospital (02) ==
LOC: ED 21:45 → EDHOLD 23:30 → 4E 03-15 09:40
PROVIDERS: Internal Medicine; ADMIT Student in an Organized Health Care Education/Training Program; ATTEND Student in an Organized Health Care Education/Training Program
DX: R07.89 Other chest pain (principal); I47.2 Ventricular tachycardia; R77.8 Other specified abnormalities of plasma proteins; E87.8 Other disorders of electrolyte and fluid balance, not elsewhere classified; R00.0 Tachycardia, unspecified; E11.65 Type 2 diabetes mellitus with hyperglycemia; I12.0 Hypertensive chronic kidney disease with stage 5 chronic kidney disease or end stage renal disease; N18.30 Chronic kidney disease, stage 3 unspecified; E11.22 Type 2 diabetes mellitus with diabetic chronic kidney disease; E78.5 Hyperlipidemia, unspecified; J44.9 Chronic obstructive pulmonary disease, unspecified; F41.9 Anxiety disorder, unspecified; F32.9 Major depressive disorder, single episode, unspecified; E03.9 Hypothyroidism, unspecified; I48.91 Unspecified atrial fibrillation; D68.59 Other primary thrombophilia; I21.4 Non-ST elevation (NSTEMI) myocardial infarction; D72.829 Elevated white blood cell count, unspecified; Z79.4 Long term (current) use of insulin; Z79.899 Other long term (current) drug therapy; Z20.828 Contact with and (suspected) exposure to other viral communicable diseases